=== PATIENT | male | born 1945 | race Caucasian/White ===

== ENCOUNTER 2025-02-07 13:10 | Outpatient (CLI) | payer MEDICARE, OTHER, SELFPAY ==
--- NOTE | ~2025-02-07 | PE_ITS ---
EXAMINATION: PET_PETPSMAST_PT DATE: 02/07/2025 15:48 INDICATION: Prostate cancer TECHNIQUE: 5.455 mCi of Illucix Ga-[id number]) was administered i.v. Low dose computed jennifer graphy (CT) images were acquired from the base of the brain to the base of the brain to the proximal thighs for attenuation correction and anatomic localization. Positron emission tomography (PET) image s were acquired in the same distribution beginning 71 minutes after injection. Images including fused PET/CT images were reconstructed in axial, coronal, and sagittal planes. Automated exposure control technique was employed. The dose-length product was 987.34mGy-cm. COMPARISON: None FINDINGS: Head/neck: Typical pattern of symmetric physiologic increased activity in the lacrimal, parotid and submandibula r glands as well as along the mucosa of the nasal and oral cavities, pharynx and hypopharynx. No path ologically enlarged cervical lymphadenopathy or suspicious foci of increased uptake in the visualized head or neck. Chest: Approximately 10 mm solid solid-appearing nodule in the right upper lobe appears to correspond to a t hin linear band of discoid atelectasis. There is a 1.6 x 0.9 cm nodule without abnormal activity situ ated peripherally in the superior segment of the right upper lobe along the major fissure which appea rs likely retracted also favoring atelectasis. No other suspicious pulmonary nodules or pleural effus ion. Mild cardiomegaly. Atherosclerotic coronary artery calcific location. No pericardial effusion. E ctatic ascending thoracic aorta measuring up to 4.0 cm. Calcified AP window lymph nodes consistent wi th old granulomatous disease. No pathologically enlarged or PSMA avid thoracic lymphadenopathy. Abdomen/pelvis/proximal thighs: Physiologic renal accumulation and excretion of activity in the kidneys, partially decompressed bladd er and along portions of ureters. There are photopenic defects associated with a few bilateral renal cysts the largest at the upper pole the left kidney measuring 5.5 cm. Prostatomegaly measuring 5.7 x 5.0 cm and which impresses upon the base of the bladder. There is increased activity extending from l eft to right across the posterior peripheral zone of the prostate with maximal SUV of 9.7 on the left and 8.9 on the right consistent with primary prostate cancer. Normal degree and slightly heterogenou s pattern of increased uptake throughout the liver and spleen without radiologic correlate or dominan t PSMA avid lesion. There are photopenic defects associated with the larger of multiple low-attenuati on hepatic cysts the largest measuring 3.2 cm. The decompressed gallbladder, pancreas and bilateral a drenal glands are normal. Moderate uptake scattered throughout the bowels with typical duodenal and p roximal jejunal predominance and without radiologic correlate, also likely physiologic. No other abno rmal foci of increased uptake or pathologically enlarged lymphadenopathy in the abdomen, pelvis or pr oximal thighs. Musculoskeletal: Severe lumbar and moderate cervical and thoracic spondylosis. Chronic T12 compression fracture. Sever e left and advanced right glenohumeral osteoarthritis. No suspicious lytic, blastic or abnormally PSM A avid bone lesions. IMPRESSION: 1. Prostatomegaly with increased uptake in the peripheral zone of the left and right consistent with primary prostate cancer. No PSMA abdomen avid lesions suspicious for metastatic disease. 2. Indeterminate 1.6 x 0.9 cm nodular opacity at the superior segment of the right lower lobe with basilio ggestion of some associated volume loss and favor atelectasis over infectious or malignancy. Recommen d correlation with any prior outside imaging if available. Otherwise would recommend 3 month follow-u p low-dose noncontrast chest CT. 3. 10 mm part solid appearing nodule in the right upper lobe but which on sagittal reconstruction belén ears to represent a small linear band of discoid atelectasis. This could be reassessed same time with follow-up CT in 3 months. 4. Ectatic ascending thoracic aorta measuring up to 4.0 cm. Reviewed, dictated and finalized at location A. IMPRESSION: 1. Prostatomegaly with increased uptake in the peripheral zone of the left and right consistent with primary prostate cancer. No PSMA abdomen avid lesions wolf picious for metastatic disease. 2. Indeterminate 1.6 x 0.9 cm nodular opacity at the superior segment of the ri ght lower lobe with suggestion of some associated volume loss and favor atelect asis over infectious or malignancy. Recommend correlation with any prior outsid e imaging if available. Otherwise would recommend 3 month follow-up low-dose no ncontrast chest CT. 3. 10 mm part solid appearing nodule in the right upper lobe but which on sagit adam reconstruction appears to represent a small linear band of discoid atelecta sis. This could be reassessed same time with follow-up CT in 3 months. 4. Ectatic ascending thoracic aorta measuring up to 4.0 cm.
--- OUTSIDE RECORDS SUMMARY | 2025-02-07 13:19 | XMS_ITS | Clinical Summary ---
Author Organization [facility] Address [address] [place] [address] Care Team Providers Care Molder Punch Name Role Phone Unavailable Primary Care Provider Unavailabl e Social History Tobacco Use Types Packs/Day Years Used Date Smoking Tobacco: Never Assessed Sex and Gender Information Value Date Recorded Sex Assigned at Not on file Legal Sex Male 4:10 PM CDT Gender Identity Not on file Sexual Orientation Not on file Plan of Treatment Health Maintenance Due Date Last Done Comments Hepatitis C Virus (HCV) Screening 1945 TdaP Immunization 1945 Pneumococcal Immunization (5 0+ years) (1 of 1 - PCV) 02/16/1994 Zoster Immunization (1 of 2) 02/16/1994 Respiratory Syncytial Virus (RSV) Immunization (Adult) (1 - 1-dose 75+ series) 02/16/2019 SARS-COV-2 Immunization ( - 2023- season) 2024 Influenza Immunization (#1) 2025 Hepatitis B Immunization Aged Out No longer eligible based on patient's age to complete this topic Human Papillomavirus (HPV) Immunization Aged Out No longer eligible b ased on patient's age to complete this topic Meningococcal Immunization (ACWY) Aged Out No longer eligible based on patient's age to complete this topic Rotavirus Immunization Aged Out No lo nger eligible based on patient's age to complete this topic
--- OUTSIDE RECORDS SUMMARY | 2025-02-07 13:19 | XMS_ITS | Clinical Summary ---
Author Organization [facility] [address] Address [address] [place] [address] Care Team Providers Care Biodiesel Technology Manager Name Role Phone Raman Delgado MD Primary Care Provider [phone] Allergies No known active allergies Medications cholecalciferol (VITAMIN D-3) 2,000 unit tablet daily Ac tive Active Problems Problem Noted Date Diagnosed Date Lymphedema of both lower extremities 12/26/2018 Assessment & Plan (04/22/2019 3:39 PM CDT): Impression: Stable bilateral lower extremity edema with daily compression therapy. No open ulcerations. Plan: Continue current compression regimen. Patient to follow up on as-needed basis. Assessment & Plan (01/03/2019 12:44 PM CDT): Impression: Persistent bilateral lower extremity edema with hyperpigmentation is failed conservative therapy including daily compression leg elevation and exercise. He currently has no open ulcerations either lower extremity. Plan: Recommended ongoing daily compression therapy with knee or thigh high medical grade compression stockings 20 30 mm mercury in strength. Also recommended home compression pump therapy to assist with his symptoms. Patient follow-up in 3 months for re-evaluation Assessment & Plan (12/26/2018 3:09 PM CDT): Patient has chronic lower extremity edema consistent with venous hypertension and lymphedema. Have recommended adding pneumatic compression therapy to his compression regimen in addition ongoing exercise and elevation. Patient has worse with swelling of the left calf and ankle. Given history of prostate cancer 1 to ensure no evidence of recurrence or external compression. Will get a CT scan of the pelvis follow- up subsequent to that study being performed. Chronic venous hypertension, bilateral 9 Assessment & Plan (01/03/2019 12:45 PM CDT): Impression: Chronic venous hypertension with persistent lower extremity edema and hyperpigmentation. No open ulcerations currently. Patient also has associated leg fatigue. CT abdomen pelvis negative for any central venous congestion or mass effect. Plan: Continue current compression regimen and recommended home compression pump therapy to assist with symptom control. Assessment & Plan (12/26/2018 3:10 PM CDT): Continue daily compression therapy, exercise and leg elevation. Will add pneumatic compression pump. Carcinoma of prostate 08/03/2017 History of vertebral fracture 08/03/2017 Osteoarthritis 08/03/2017 Palpitations 12/10/2014 Impaired exercise tolerance 12/10/2014 Malignant neoplasm of prostate 04/13/2010 Overview (10/06/2017): Description: active surveillance Surgical History Surgery Date Site/Laterality Comments IN DIAGNOSTIC ARTHROSCOPY SH OULDER +- SYNOVIAL BX Arthroscopy Shoulder - (Added by TW Conv) IN APPENDECTOMY Appendectomy - (Added by TW Conv) VEIN LIGATION AND STRIPPING Venous Ligation With Stripping - (Added by TW Conv) VASECTOMY Medical History Medical History Date Comments Vasectomy status Status post vas ectomy - (Added by TW Conv) Prostate cancer (HCC) Family History Medical History Relation Name Comments Dementia Mother Family history of dementia - (Added by TW Conv) Peripheral vascular disease Mother Family history of peripheral vascular disease - (Added by TW Conv) Relation Name Status Comments Father Mother Social History Tobacco Use Types Packs/Day Years Used Date Smoking Tobacco: Never Personal Safety Answer Date Recorded Have you ever been in or are you currently in a harmful physical or emotional relationship or is someone making you feel afraid or unsafe? 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 Gender Identity Male 12/21/2021 11:23 AM CDT Sexual Orientation Bisexual 12/21/2021 11 :23 AM CDT Obstetrics History Last Filed Vital Signs Vital Sign Reading Time Taken Comments Blood Pressure 119/100 03/20/2023 3:05 PM CDT Pulse 88 03/20/2023 3:05 PM CDT Temperature 36.7 C (98.1 F) 03/20/2023 10:41 AM CDT Respiratory Rate 14 03/20/2023 3:03 PM CDT Oxygen Saturation 98% 03/20/2023 3:05 PM CDT Inhaled Oxygen Concentration - - Weight 82.6 kg (182 lb) 03/20/2023 10:41 AM CDT Height 177.8 cm (5' 10) 03/20/2023 10:41 AM CDT Body Mass Index 26.11 03/20/2023 10:41 AM CDT Plan of Treatment Health Maintenance Due Date Last Done Comments Depression Screening 1945 Fall Risk Assessment 1945 DTaP/Tdap/Td Vaccine (1 - Tdap) 02/16/1955 Hepatitis B Screening 02/16/1962 Pneumococcal vaccine 65+ (1 of 1 - PCV) 02/16/1994 Zoster Vaccine (1 of 2) 02/16/1994 Well Visit 65+ 02/16/2009 Covid-19 Vaccine (6 2023-2 5 season) 2024 03/08/2022, 10/14/2021, 03/22/2021, Additional history exists Influenza Vaccine (#1) 2025 , 03/08/2022, 04/22/2021, Additional history exists Insurance [place] [address] FOR LIFE MEDICARE [facility] FOR LIFE Care Teams Biodiesel Technology Manager Relationship Specialty Start Date End Date Raman Delgado MD [address] [facility] [address] [place] [address] PCP - General Internal Medicine 11/08/17
--- OUTSIDE RECORDS SUMMARY | 2025-02-07 13:19 | XMS_ITS | Continuity of Care Document ---
Author Name [facility] Organization [facility] Care Team Providers Care Freezer Assistant Name Role Phone [facility] Unavailable Unavailable Medications Combined list of outpatient medications from Department of Defense and Veterans Affairs facilities.Medications provided include 1) outpatient medications from the last 15 months, and 2) patient-reported medications. Medication Details Route Status Patient Instructions Prescription Expires Prescription Number Last Dispense Date Ordering Provider Order Date Order Qty Source amoxicillin -clav 875 mg-125 mg tablet = 1 tab(s), Oral, every 12 hr, # 20 EA, 0 total refill(s ), Soft Stop Oral (given by mouth) Ordered 5 2024 20.0 Ambulat ory Pharmac y benzonatate 200 mg capsule = 1 cap(s), Oral, once , up to 3 times a day as needed. Can cause drowsine ss, # 30 EA, 0 total refill(s ), Soft Stop Oral (given by mouth) Ordered 5 2024 30.0 Ambulat ory Pharmac y cephalexin 500 mg capsule See Instruct ions, # 28 EA, 0 total refill(s ), Hard Stop Complet ed 03/19/2024 3 2023 28.0 Ambulat ory Pharmac y doxycycline hyclate 50 mg capsule 50 mg, Oral, Daily, # 90 EA, 0 total refill(s ), Hard Stop Oral (given by mouth) Discont inued 02/06/2024 4 2023 90.0 Ambulat ory Pharmac y doxycycline hyclate 50 mg capsule See Instruct ions, # 90 EA, 3 total refill(s ), Acute Complet ed 10/05/2023 4 2023 90.0 Ambulat ory Pharmac y doxycycline hyclate 50 mg capsule 50 mg, Oral, Daily, # 90 EA, 3 total refill(s ), Hard Stop Oral (given by mouth) Discont inued 01/27/2025 5 2024 90.0 Ambulat ory Pharmac y doxycycline hyclate 50 mg capsule = 1 cap(s), Oral, Daily, # 30 EA, 2 total refill(s ), Soft Stop Oral (given by mouth) Ordered 5 2024 30.0 Ambulat ory Pharmac y hydrocortis one 2.5% topical cream APPLY TO FACE AND NECK TWICE A DAY, # 30 g, 11 total refill(s ), Acute Complet ed 03/30/2023 2 2022 30.0 Ambulat ory Pharmac y Allergies, Adverse Reactions, Alerts Combined list of allergies from Department of Defense and Veterans Affairs facilities. It does not include entries that were removed or entered in error. Substance Category Reaction Severity Reaction type Status Date Reported Comments Source No Known Allergies Drug allergy (disorder) active 8 [facility] [place] [place] NO KNOWN ALLERGIES Propensity to adverse reactions to drug Active Unknown Organization Immunizations Combined list of available immunizations from the Department of Defense and Veterans Affairs facilities. Immunization Series Date Given Administered By Site Reaction Lot Number CVX Code Drug Dishwasher Busser Status Comments Source zoster recombinant 2023 () Not Given zoster recombina nt DoD zoster recombinant 2023 () Not Given zoster recombina nt DoD zoster recombinant 2023 () Not Given zoster recombina nt DoD Tdap 2023 () Not Given Tdap DoD Pneumococcal conjugate PCV20, polysaccharid e [id number] conjugate, adjuvant, PF 2023 () Not Given Pneumococ ayden conjugate PCV20, polysacch aride [id number] conjugate , adjuvant, PF DoD COVID-19, mRNA, LNP-S, PF, 30 mcg/0.3 mL dose 2020 [employer] (PFR) Not Given COVID-19, mRNA, LNP-S, PF, 30 mcg/0.3 mL dose DoD Encounters Combined list of: 1) Encounters from Department of Veterans Affairs facilities going backup to the last 18 months, not all [facility] inpatient encounters are included; 2) Encounters from the Department of Defense facilities going backup to 280 months. Location Location Details Encounter Type Encounter Number Reason For Visit Attending Provider ADM Date DC Date Status Disposition Source [facility] Outpatient Encounter [id number] 4 07/27 [facility] Procedures Combined list of: 1) Procedures from Department of Veterans Affairs facilities going back up to thelast 18 months, not all [place] non-surgical procedures are included; 2) All procedures from the Department of Defense facilities. Procedure Procedure Type Code Date Perfomer Comments Sourc e No data available for this section Ambulatory P harmacy Social History Combined list of available smoking, tobacco, and other social history from Department of Defense and Veterans Affairs facilities. Social History Type Response Date Comment Sourc e This section is an empty social history section. DoD Assessment and Plan Combined list of future care activities from Department of Defense and Veterans Affairs facilities (e.g., assessment and plan notes, appointments, orders, and referrals). Additional future care activities may be listed in the Plan of Care section. Result Assessment and Plan Date Source Assessment and Plan No data available for this section 02/07/2025 Ambulatory Pharmacy Functional Status Combined list of recent functional and cognitive assessments recorded at [facility] and [facility] ([place] Functional [place] Measurement (FIM) Scale: 1 = Total Assistance (Subject = 0% +), 2 = Maximal Assistance (Subject = 25% +), 3 = Moderate Assistance (Subject = 50% +), 4 = Minimal Assistance (Subject = 75% +), 5 = Supervision, 6 = Modified [place] (Device), 7 = Complete [place] (Timely, Safely). Assessment Date/Time Source Assessment Type Assessment Skill Assessment Score Assessment Details No data available for this section
== END 2025-02-07 13:11 | disposition home or self-care (01) ==
PROVIDERS: PCP Internal Medicine; Visit Provider Urology
DX: N40.0 Benign prostatic hyperplasia without lower urinary tract symptoms (principal); R91.8 Other nonspecific abnormal finding of lung field; C61 Malignant neoplasm of prostate
CPT/HCPCS: 78815; A9596